=== PATIENT | male | born 1960 | race Caucasian/White ===

== ENCOUNTER 2018-12-06 05:35 | Day surgery (SDC) | payer OTHER ==
[~2018-12-06 05:35] MED LIST: ANALPRAM HC 2.530 GM RC; PERCOCET 5/3251 TAB PO
[2018-12-06] MEDS ORDERED: PERCOCET 5-3251 EACH PO (10:35)
[2018-12-06] MEDS ORDERED: NEURONTIN300 MG PO (10:36)
[2018-12-06] MEDS ORDERED: KETOROLAC TROME10 MG PO (10:36)
== END 2018-12-06 13:45 | disposition home or self-care (01) ==
LOC: CIR.AMB 05:35
DX: K64.8 Other hemorrhoids (principal)

== ENCOUNTER 2020-10-25 11:45 | Inpatient (IN) | payer OTHER ==
[~2020-10-25] VITALS: Ht 180.3 cm; Wt 88.5 kg
[~2020-10-25 11:45] MED LIST changes: +KETOROLAC TROME10 MG PO; +NEURONTIN300 MG PO; +PERCOCET 5-3251 EACH PO
[2020-11-01] MEDS ORDERED: INTESTINEX680 M1 (08:50)
[2020-11-01] MEDS ORDERED: AMOX-CLAV 500-1 EACH (08:50)
[2020-11-04] MEDS ORDERED: PERCOCET 5-3251 EACH PO (09:12)
[2020-11-04] MEDS ORDERED: SURFAK240 M1 PO (09:20)
== END 2020-11-04 10:45 | disposition home or self-care (01) | DRG 331 ==
LOC: SURG 10-31 07:22 → O/R 10-31 07:22 → SURH 10-31 11:45 → EDBD 10-31 11:45 → SURH 10-31 14:45 → MEDI 10-31 16:59 → SURG 10-31 17:13
PROVIDERS: ADMIT Surgery; ATTEND Surgery
PROC: 0DTN4ZZ Resection of Sigmoid Colon, Percutaneous Endoscopic Approach (ICD-10-PCS; 2020-10-31)
PROC: 0DNW4ZZ Release Peritoneum, Percutaneous Endoscopic Approach (ICD-10-PCS; 2020-10-31)
PROC: 0DJD8ZZ Inspection of Lower Intestinal Tract, Via Natural or Artificial Opening Endoscopic (ICD-10-PCS; 2020-10-31)
PROC: 3E0F7SF Introduction of Other Gas into Respiratory Tract, Via Natural or Artificial Opening (ICD-10-PCS; 2020-10-31)
PROC: 0DTP4ZZ Resection of Rectum, Percutaneous Endoscopic Approach (ICD-10-PCS; principal; 2020-10-31 14:45)
PROC: 4A12X4Z Monitoring of Cardiac Electrical Activity, External Approach (ICD-10-PCS; 2020-11-02)
DX: K57.20 Diverticulitis of large intestine with perforation and abscess without bleeding (principal); K59.00 Constipation, unspecified; K66.0 Peritoneal adhesions (postprocedural) (postinfection); F17.200 Nicotine dependence, unspecified, uncomplicated; Z20.822 Contact with and (suspected) exposure to COVID-19